=== PATIENT | female | born 1960 | race Caucasian/White ===

== ENCOUNTER 2016-10-26 17:53 | Emergency (ER) | payer BC, OTHER ==
[2016-10-26 18:04] VITALS: BP 160/105
--- NOTE | 2016-10-26 18:25 | UC ---
Skin Complaint HPI - HPI Summary HPI Summary: Lip irritation started a couple of days ago. Chapped and sore, now developing blisters. - History of Current Complaint Chief Complaint: UCGeneralIllness Time Seen by Provider: 10/26/16 18:09 Stated Complaint: ALLERGIC REACTION Hx Obtained From: Patient ?: No Onset/Duration: Sudden Onset, Lasting Days - 3, Worse Since - today Onset Severity: Mild Current Severity: Moderate Location: Discrete - on the lips Character: Redness, Painful Aggravating: Touch, Other - ? worse with chapstick Alleviating: Nothing Associated Signs & Symptoms: Negative: Nausea, Vomiting, Difficulty Breathing, Fever, Chills Related History: Possible Reaction to: Environmental Exposure - lip balms - Allergy/Home Medications Allergies/Adverse Reactions: Allergies Allergy/AdvReac Type Severity Reaction Status Date / Time Ampicillin Allergy Severe ANAPHAXSIS Verified 10/26/16 17:57 Sulfa Drugs Allergy Severe NAUSEA/VOMITING, Verified 10/26/16 17:57 SWELLING Ciprofloxacin [From Cipro] Allergy ANAPHLAXSIS Verified 10/26/16 17:57 Home Medications: Home Medications Astelin 1 spr NASAL DAILY 10/26/16 [History] Fluticasone NASAL * [Flonase *] 1 spray BOTH NARES DAILY 10/26/16 [History Confirmed 10/26/16] Review of Systems Skin: Rash Is Patient Immunocompromised?: No All Other Systems Reviewed And Are Negative: Yes PMH/Surg Hx/FS Hx/Imm Hx - Surgical History Surgical History: Yes Surgery Procedure, Year, and Place: KNEE SURGERY - Social History Occupation: Employed Full-time Lives: Alone Alcohol Use: Occasionally Substance Use Type: None Smoking Status (MU): Never Smoked Tobacco Physical Exam Triage Information Reviewed: Yes Appearance: No Pain Distress, Well-Nourished, Ill-Appearing - mild Vital Signs: Initial Vital Signs Temp 98.7 F 10/26/16 18:00 Pulse 88 10/26/16 18:00 Resp 16 10/26/16 18:00 BP 160/105 10/26/16 18:00 Pulse Ox 100 10/26/16 18:00 Vital Signs Reviewed: Yes Eyes: Positive: Conjunctiva Clear ENT: Positive: Pharynx normal, TMs normal, Other: - ulcer on lower lip with honey crust. Lips swollen and tender. Neck exam: Normal Respiratory Exam: Normal Cardiovascular: Positive: RRR, Murmur:Sys:Grade _?_/ - 2/6 Musculoskeletal Exam: Normal Neurological Exam: Normal Psychological Exam: Normal Skin: Positive: significant lesion(s) - on the lips as above Course/Dx - Differential Diagnoses - Skin Complaint Differential Diagnoses: Allergic Reaction, Contact Dermatitis, Impetigo - Diagnoses Provider Diagnoses: Herpes labialis. Impetigo Discharge - Discharge Plan Condition: Stable Disposition: HOME Prescriptions: Mupirocin 2% OINT* [Bactroban 2 % Oint*] 1 applic TOPICAL TID #1 tube ValACYclovir (*) [Valtrex 500 mg (*)] 500 mg PO BID #10 tab Patient Education Materials: Oral Herpes Simplex Virus Infections (ED), Valacyclovir (By mouth), Impetigo (ED), Mupirocin (On the skin)
[2016-10-26] MEDS ORDERED: Acyclovir* 200 MG CAP PO ONE (18:36)
[2016-10-26] MEDS ORDERED: Clarithromycin TAB* 500 MG PO ONE (18:38)
== END 2016-10-26 18:51 | disposition home or self-care (01) ==
LOC: UCCORT 17:53
DX: B00.1 Herpesviral vesicular dermatitis (principal); L01.00 Impetigo, unspecified; Z88.1 Allergy status to other antibiotic agents; Z88.2 Allergy status to sulfonamides
CPT/HCPCS: 99212; A9270-GY; G0463